=== PATIENT | female | born 1985 | race African-American/Black ===

== ENCOUNTER 2023-04-19 19:52 | Emergency (ER) | payer OTHER ==
[~2023-04-19] VITALS: Ht 170.2 cm; Wt 103.4 kg
[2023-04-19] MEDS ORDERED: ACETAMINOPHEN 325MG TABLET PO ONE (21:00)
[2023-04-20] MEDS ORDERED: OXYCODONE HCL/ACETAMINOPHEN 5/325MG TABLET PO ONE (00:15)
[2023-04-20 00:34] VITALS: BP 134/72
[2023-04-20] MEDS ORDERED: T3 PO (00:46)
[2023-04-20] MEDS ORDERED: IBUP-2028 PO (00:46)
== END 2023-04-20 01:00 | disposition home or self-care (01) ==
LOC: ER 19:52
DX: M54.2 Cervicalgia (principal); R07.81 Pleurodynia
CPT/HCPCS: 71111; 73000; 99284; A4565